=== PATIENT | female | born 1940 | race Caucasian/White ===

== ENCOUNTER 2017-12-04 09:36 | Emergency (ER) | payer OTHER ==
[~2017-12-04] VITALS: Ht 170.2 cm; Wt 67.1 kg
[2017-12-04] MEDS ORDERED: HYDROCHLOROTHIA25 M1 PO (09:52)
[2017-12-04] MEDS ORDERED: LISINOPRIL20 MG PO (09:52)
[2017-12-04] MEDS ORDERED: TUMS PO (09:53)
[2017-12-04] MEDS ORDERED: VITAMIN E400 UNIT PO (09:53)
[2017-12-04] MEDS ORDERED: JOINT SUPPORT1 EACH PO (09:53)
[2017-12-04] MEDS ORDERED: BRAIN MIGHT-DH1 EACH PO (09:53)
[2017-12-04] MEDS ORDERED: FISH OIL 1,001000 M2 PO (09:53)
[2017-12-04] MEDS ORDERED: UNICOMPLEX M TA1 TA1 PO (09:54)
[2017-12-04 10:22] LABS: ABSOLUTE LYMPHOCYTES 1.4 thou/uL (0.8-5.3); ABSOLUTE MONOCYTES 0.4 thou/uL (0.0-1.2); BASOPHILS 0.7 %; EOSINOPHILS 0.6 %; HEMATOCRIT 36.7 % (37.0-47.0); HEMOGLOBIN 12.3 gm/dL (12.0-15.0); LYMPHOCYTES 19.7 %; MCH 29.6 pg (26.0-34.0); MCHC 33.7 g/dL (28.0-37.0); MCV 87.9 fL (80.0-100.0); MONOCYTES 6.5 %; MPV 8.9 fl. (7.2-11.1); NUCLEATED RBCS 0 /100WBC; PLATELET COUNT* 242 thou/uL (150-400); POLYS 72.5 %; RBC 4.17 mil/uL (4.20-5.00); RDW-CV 13.9 % (10.5-14.5)
[2017-12-04 10:30] LABS: ANION GAP 5 mmol/L (7-16); BUN 16 mg/dL (7-18); CALCIUM 9.2 mg/dL (8.5-10.1); CHLORIDE 105 mmol/L (98-107); CO2 31 mmol/L (21-32); CREATININE 0.6 mg/dL (0.6-1.3); GLUCOSE 100 mg/dL (70-99); POTASSIUM 3.9 mmol/L (3.5-5.1); SODIUM 141 mmol/L (136-145)
[2017-12-04 10:38] LABS: ALBUMIN 2.9 g/dL (3.4-5.0); ALKALINE PHOSPHATASE 69 U/L (46-116); SGOT 22 U/L (15-37); SGPT 22 U/L (30-65); TOTAL BILIRUBIN 0.4 mg/dL (<0.1-1.0); TOTAL PROTEIN 6.6 g/dL (6.4-8.2); TROPONIN-I LEVEL <0.06 ng/mL (<0.06)
[2017-12-04 11:44] LABS: URINE BILIRUBIN NEGATIVE (Negative); URINE BLOOD TRACE (Negative); URINE CLARITY CLEAR; URINE COLOR YELLOW; URINE GLUCOSE-RANDOM NEGATIVE (Negative); URINE KETONES NEGATIVE (Negative); URINE LEUKOCYTES-REFLEX NEGATIVE (Negative); URINE NITRITE-REFLEX NEGATIVE (Negative); URINE PROTEIN 3+ (Negative); URINE SPECIFIC GRAVITY 1.025 (1.005-1.030); URINE UROBILINOGEN 0.2 E.U./dl (0.2-1.0)
[2017-12-04 11:50] LABS: CRYSTALS None Seen /LPF (None Seen); SQUAMOUS 0-3 Few /LPF (0-3)
[2017-12-04 11:51] LABS: URINE RBC 3-10 Few /HPF (0-2); URINE WBC-REFLEX None Seen /HPF (0-5)
[2017-12-04 11:52] LABS: BACTERIA-REFLEX None Seen /HPF (None Seen); CASTS None Seen /LPF (None Seen)
[2017-12-04] MEDS ORDERED: CLONIDINE0.1 PO (12:27)
[2017-12-04 12:35] VITALS: BP 119/57
--- NOTE | 2017-12-04 15:27 | EKG ---
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: Makayla FAUSTIN : 1940 Requested By: Krysta Mchugh Order Number: [id number] MD: Vinny Mahoney Measurements Intervals Kennedy Rate: 86 P: 34 GA: 194 QRS: -6 QRSD: 86 T: 14 QT: 370 QTc: 443 Interpretive Statements Sinus rhythm Probable left atrial enlargement Low voltage, precordial leads Abnormal R-wave progression, late transition No previous ECG available for comparison Electronically Signed On 12-04-2017 15:27:52 CDT by Vinny Mahoney [email or web address] <ELECTRONICALLY SIGNED> By: Vinny Mahoney MD, [facility] 12/04/17 1527 1108 Vinny Mahoney MD, FAC /EPI
== END 2017-12-04 12:36 | disposition home or self-care (01) ==
LOC: M.ERS 09:36
PROVIDERS: Physician Assistant
DX: I16.0 Hypertensive urgency (principal); Z88.1 Allergy status to other antibiotic agents

== ENCOUNTER → 2018-01-21 | Outpatient (CLI) | payer OTHER ==
[~2018-01-21] MED LIST: BRAIN MIGHT-DH1 EACH PO; CLONIDINE0.1 PO; FISH OIL 1,001000 M2 PO; HYDROCHLOROTHIA25 M1 PO; JOINT SUPPORT1 EACH PO; LISINOPRIL20 MG PO; TUMS PO; UNICOMPLEX M TA1 TA1 PO; VITAMIN E400 UNIT PO
[2018-01-21 07:45] LABS: ABSOLUTE BASOPHILS 0.1 thou/uL (0.0-0.2); ABSOLUTE EOSINOPHILS 0.1 thou/uL (0.0-0.7); ABSOLUTE LYMPHOCYTES 1.7 thou/uL (0.8-5.3); ABSOLUTE MONOCYTES 0.5 thou/uL (0.0-1.2); ABSOLUTE NEUTROPHILS 3.2 thou/uL (1.6-8.1); BASOPHILS 1.1 %; EOSINOPHILS 1.8 %; HEMATOCRIT 34.6 % (37.0-47.0); HEMOGLOBIN 11.6 gm/dL (12.0-15.0); LYMPHOCYTES 30.8 %; MCH 29.8 pg (26.0-34.0); MCHC 33.6 g/dL (28.0-37.0); MCV 88.6 fL (80.0-100.0); MONOCYTES 8.3 %; MPV 8.2 fl. (7.2-11.1); NUCLEATED RBCS 0 /100WBC; PLATELET COUNT* 233 thou/uL (150-400); RDW-CV 14.2 % (10.5-14.5); WBC 5.6 thou/uL (4.0-11.0)
[2018-01-21 07:49] LABS: URINE BILIRUBIN NEGATIVE (Negative); URINE BLOOD 1+ (Negative); URINE CLARITY CLEAR; URINE COLOR YELLOW; URINE GLUCOSE-RANDOM NEGATIVE (Negative); URINE KETONES NEGATIVE (Negative); URINE LEUKOCYTES NEGATIVE (Negative); URINE NITRITE NEGATIVE (Negative); URINE PROTEIN 2+ (Negative); URINE UROBILINOGEN 0.2 E.U./dl (0.2-1.0)
[2018-01-21 07:55] LABS: CALCIUM 8.8 mg/dL (8.5-10.1); CREATININE 0.6 mg/dL (0.6-1.3); PHOSPHORUS* 3.5 mg/dL (2.5-4.9); POTASSIUM 3.8 mmol/L (3.5-5.1)
[2018-01-21 08:01] LABS: BACTERIA None Seen /HPF (None Seen); MUCUS 0-3 Light strn/LPF (None Seen); SQUAMOUS 0-3 Few /LPF (0-3); URINE RBC 3-10 Few /HPF (0-2); URINE WBC None Seen /HPF (0-5)
[2018-01-21 08:02] LABS: HYALINE CASTS 0-3 Few /LPF (None Seen)
[2018-01-21 08:03] LABS: CRYSTALS None Seen /LPF (None Seen)
[2018-01-21 12:09] LABS: eGFR IF AFRICAN AMERICAN 100 (>59)
[2018-01-21 13:10] LABS: IgA 168 mg/dL (64-422); IgG 453 mg/dL (700-1600); IgM 109 mg/dL (26-217)
[2018-01-21 16:07] LABS: PARATHYROID HORMONE 24 pg/mL (15-65)
[2018-01-22 15:07] LABS: KAPPA FREE LIGHT CHAINS 13.9 mg/L (3.3-19.4); LAMBDA FREE LIGHT CHAINS 14.2 mg/L (5.7-26.3)
== END ==
LOC: M.ULTRA 07:20
PROVIDERS: Internal Medicine
DX: I10 Essential (primary) hypertension (principal); R80.9 Proteinuria, unspecified

== ENCOUNTER → 2018-04-09 | Outpatient (CLI) | payer OTHER ==
[2018-04-09 12:08] LABS: ABSOLUTE BASOPHILS 0.1 thou/uL (0.0-0.2); ABSOLUTE EOSINOPHILS 0.1 thou/uL (0.0-0.7); ABSOLUTE LYMPHOCYTES 1.6 thou/uL (0.8-5.3); ABSOLUTE MONOCYTES 0.5 thou/uL (0.0-1.2); ABSOLUTE NEUTROPHILS 3.8 thou/uL (1.6-8.1); BASOPHILS 1.4 %; EOSINOPHILS 1.1 %; HEMATOCRIT 34.5 % (37.0-47.0); HEMOGLOBIN 11.4 gm/dL (12.0-15.0); LYMPHOCYTES 26.2 %; MCH 29.8 pg (26.0-34.0); MCHC 33.1 g/dL (28.0-37.0); MONOCYTES 8.3 %; MPV 8.8 fl. (7.2-11.1); NUCLEATED RBCS 0 /100WBC; PLATELET COUNT* 249 thou/uL (150-400); RBC 3.83 mil/uL (4.20-5.00); RDW-CV 13.8 % (10.5-14.5)
[2018-04-09 12:09] LABS: URINE BILIRUBIN NEGATIVE (Negative); URINE BLOOD NEGATIVE (Negative); URINE CLARITY CLEAR; URINE COLOR YELLOW; URINE GLUCOSE-RANDOM NEGATIVE (Negative); URINE KETONES NEGATIVE (Negative); URINE LEUKOCYTES-REFLEX NEGATIVE (Negative); URINE NITRITE-REFLEX NEGATIVE (Negative); URINE PROTEIN 2+ (Negative); URINE UROBILINOGEN 0.2 E.U./dl (0.2-1.0)
[2018-04-09 12:22] LABS: CALCIUM 8.6 mg/dL (8.5-10.1); CREATININE 0.6 mg/dL (0.6-1.3); MAGNESIUM 1.8 mg/dL (1.8-2.4); PHOSPHORUS* 3.8 mg/dL (2.5-4.9)
[2018-04-09 12:24] LABS: BACTERIA-REFLEX 1-9 Few /HPF (None Seen); MUCUS 0-3 Light strn/LPF (None Seen); SQUAMOUS 0-3 Few /LPF (0-3); URINE RBC 0-2 Rare /HPF (0-2); URINE WBC-REFLEX 0-5 Rare /HPF (0-5)
[2018-04-09 12:26] LABS: CRYSTALS None Seen /LPF (None Seen); HYALINE CASTS 0-3 Few /LPF (None Seen)
== END ==
LOC: M.LAB 11:40
PROVIDERS: Internal Medicine
DX: R80.9 Proteinuria, unspecified (principal); I10 Essential (primary) hypertension

== ENCOUNTER → 2021-08-31 | Outpatient (CLI) | payer OTHER ==
--- NOTE | 2021-08-31 16:58 | 2DMMODE ---
[place] [address] 2 D/M-MODE ECHOCARDIOGRAM Name: MAYAJOVITATristin Mcknight Room: [facility]#: [id number] Admission: 08/31/21 Attend Phys: Vinny Mahoney, Discharge: Date of : 38 Date of Service: 08/31/21 1658 Report #: [id number] THIS REPORT FOR: cc: Tu Palafox. Tu Mccord. Buster Madden MD [facility] ~ APPROVED REPORT Study performed: 08/31/2021 15:14:06 EXAM: Comprehensive 2D, Doppler, and color-flow Echocardiogram Patient Location: Out-Patient BSA: 1.73 HR: 64 bpm BP: 134/65 mmHg Other Information Study Quality: Good Indications Murmur 2D Dimensions IVSd: 11.16 (7-11mm) LVOT Diam: 20.17 (18-24mm) LVDd: 46.29 mm PWd: 10.08 (7-11mm) Ascending Ao: 29.80 (22-36mm) LVDs: 19.87 (25-40mm) Aortic Root: 30.99 mm Volumes Left Atrial Volume (Systole) LA ESV Index: 15.40 mL/m2 Aortic Valve AoV Peak Khoa.: 1.71 m/s AO Peak Gr.: 11.63 mmHg LVOT Max P.20 mmHg AO Mean Gr.: 6.11 mmHg LVOT Mean P.48 mmHg LVOT Max V: 1.34 m/s AO V2 VTI: 37.27 cm LVOT Mean V: 0.86 m/s SRIDHAR (VTI): 2.84 cm2 LVOT V1 VTI: 33.18 cm AI Yates: 2.22 m/s2 AI PHT: 594.[place] [address] 2 D/M-MODE ECHOCARDIOGRAM Name: EDILIA MAYA Room: [facility]#: [id number] Admission: 08/31/21 Attend Phys: Vinny Mahoney, Discharge: Date of : 38 Date of Service: 08/31/21 1658 Report #: [id number] Mitral Valve E/A Ratio: 0.56 MV Decel. Time: 350.16 ms MV E Max Khoa.: 0.49 m/s MV PHT: 101.55 ms MVA (PHT): 2.17 cm2 TDI E/Lateral E': 7.00 E/Medial E': 6.13 Medial E' Khoa.: 0.08 m/s Lateral E' Khoa.: 0.07 m/s Pulmonary Valve PV Peak Khoa.: 0.87 m/s PV Peak Gr.: 3.01 mmHg Tricuspid Valve RAP Estimate: 5.00 mmHg TR Peak Gr.: 23.33 mmHg RVSP: 28.33 mmHg PA Pressure: 28.33 mmHg Left Ventricle The left ventricle is normal size. There is normal LV segmental wall motion. There is normal left ventricular wall thickness. Left ventricular systolic function is normal. The left ventricular ejection fraction is within the normal range. LVEF is 55-60%. Grade I - abnormal relaxation pattern. Right Ventricle The right ventricle is normal size. The right ventricular systolic function is normal. Atria The left atrium size is normal. The right atrium size is normal. Aortic Valve Mild aortic valve sclerosis. Mild aortic regurgitation. There is no aortic valvular stenosis. Mitral Valve Mitral valve leaflets are mildly thickened. Mild mitral annular calcification. Mild mitral regurgitation. No evidence of mitral valve stenosis. Tricuspid Valve The tricuspid valve is normal in structure. [place] [address] 2 D/M-MODE ECHOCARDIOGRAM Name: EDILIA MAYA Room: [facility]#: [id number] Admission: 08/31/21 Attend Phys: Vinny Mahoney, Discharge: Date of : 38 Date of Service: 08/31/21 1658 Report #: [id number] regurgitation. Pulmonic Valve The pulmonary valve is normal in structure. There is no pulmonic valvular regurgitation. Great Vessels The aortic root is normal in size. IVC is normal in size and collapses >50% with inspiration. Pericardium There is no pericardial effusion. <Conclusion> LVEF is 55-60%. Mild aortic valve sclerosis. Mild aortic regurgitation. Mitral valve leaflets are mildly thickened. Mild mitral annular calcification. Mild mitral regurgitation. <ELECTRONICALLY SIGNED> By: Buster Galindo MD, FACC 08/31/211657 57 57 Buster Galindo MD, FACC /INF
== END ==
LOC: M.CRD 08-30 10:00
PROVIDERS: ATTEND Internal Medicine Cardiovascular Disease
DX: I08.3 Combined rheumatic disorders of mitral, aortic and tricuspid valves (principal); R01.1 Cardiac murmur, unspecified